=== PATIENT | male | born 1965 | race Caucasian/White ===

== ENCOUNTER 2021-08-22 16:12 | Inpatient (IN) | payer OTHER ==
[~2021-08-22] VITALS: Ht 170.2 cm; Wt 67.9 kg
[2021-08-22 18:46] LABS: COVID AG,FIA SOURCE NASAL SWAB
[2021-08-22 18:49] LABS: BASOPHILS % (AUTO) 0.5 % (0.0-2.0); EOSINOPHILS % (AUTO) 1.2 % (1.0-6.0); HEMATOCRIT 41.8 % (41-53); HEMOGLOBIN 13.7 g/dL (13.5-17.5); LYMPHOCYTES # (AUTO) 2.2 K/uL (1.0-4.8); LYMPHOCYTES % (AUTO) 22.5 % (22.0-44.0); MEAN CORPUSCULAR HEMOGLOBIN 33.5 pg (26.0-34.0); MEAN CORPUSCULAR HGB CONC 32.8 G/dL (31.0-37.0); MEAN CORPUSCULAR VOLUME 102 fL (80-100); MONOCYTES # (AUTO) 0.6 K/uL (0.1-1.0); MONOCYTES % (AUTO) 6.1 % (2.0-9.0); NEUTROPHILS # (AUTO) 6.9 K/uL (1.8-7.7); NEUTROPHILS % (AUTO) 69.7 % (40.0-70.0); PLATELET COUNT (AUTO) 289 K/uL (150-450); RED BLOOD CELL COUNT(AUTO) 4.08 MIL/uL (4.50-5.90); RED CELL DISTRIBUTION WIDTH 16.2 % (11.5-14.5)
[2021-08-22 19:11] LABS: CALCIUM, TOTAL 9.2 mg/dL (8.8-10.5); CREATININE 1.42 mg/dL (0.60-1.30); POTASSIUM 4.4 mmol/L (3.5-5.1)
[2021-08-22 19:17] LABS: ALBUMIN 3.1 g/dL (3.4-5.0); BILIRUBIN,TOTAL 2.2 mg/dL (0.1-1.0); TOTAL PROTEIN, SERUM 7.2 g/dL (6.4-8.2)
[2021-08-22] MEDS ORDERED: FUROSEMIDE 20 MG/2 ML VIAL IVP ONE (19:45)
[2021-08-22] MEDS ORDERED: ASPIRIN 81 MG CHEWABLE TABLET PO ONE (19:45)
[2021-08-22] MEDS ORDERED: LORazepam 2 MG/ML VIAL IVP ONE (19:45)
[2021-08-22] MEDS ORDERED: NITROGLYCERIN 0.4 MG SUBLINGUAL TABLET #25 SL ONE (19:45)
[2021-08-22] MEDS: OXYGEN THERAPY IH SCH (20:12)
[2021-08-22] MEDS ORDERED: LORazepam 2 MG TABLET PO PRN (20:30)
[2021-08-22 21:05] VITALS: BP 145/80
[2021-08-22 21:28] VITALS: BP 145/85
[2021-08-22] MEDS: VITAMIN B COMP/VIT C/FOLIC ACID CAPSULE PO SCH (21:41)
[2021-08-22] MEDS: ASPIRIN 81 MG CHEWABLE TABLET PO SCH (21:41)
[2021-08-22] MEDS: LABETALOL HCL 100 MG TABLET PO SCH (21:58)
[2021-08-22 22:05] VITALS: BP 140/85
[2021-08-22 23:05] VITALS: BP 135/87
[2021-08-23] VITALS (8 sets, daily range): BP systolic 122–152; BP diastolic 84–118
[2021-08-23] MEDS ORDERED: PNEUMOCOCCAL VACCINE POLYVALENT 0.5 ML VIAL [PPSV23] IM. ONE (01:15)
[2021-08-23] MEDS ORDERED: METOPROLOL TARTRATE 5 MG/5 ML VIAL IVP ONE (04:15)
[2021-08-23] MEDS: METOPROLOL TARTRATE 50 MG TABLET PO SCH ×2 (05:15→09:00)
[2021-08-23 06:58] LABS: BASOPHILS % (AUTO) 0.8 % (0.0-2.0); HEMATOCRIT 39.4 % (41-53); HEMOGLOBIN 13.4 g/dL (13.5-17.5); LYMPHOCYTES # (AUTO) 2.2 K/uL (1.0-4.8); LYMPHOCYTES % (AUTO) 23.3 % (22.0-44.0); MEAN CORPUSCULAR HEMOGLOBIN 34.5 pg (26.0-34.0); MEAN CORPUSCULAR HGB CONC 34.1 G/dL (31.0-37.0); MEAN CORPUSCULAR VOLUME 101 fL (80-100); MONOCYTES # (AUTO) 0.5 K/uL (0.1-1.0); MONOCYTES % (AUTO) 5.7 % (2.0-9.0); NEUTROPHILS # (AUTO) 6.4 K/uL (1.8-7.7); NEUTROPHILS % (AUTO) 68.2 % (40.0-70.0); PLATELET COUNT (AUTO) 286 K/uL (150-450); RED BLOOD CELL COUNT(AUTO) 3.89 MIL/uL (4.50-5.90); RED CELL DISTRIBUTION WIDTH 16.5 % (11.5-14.5)
[2021-08-23] MEDS ORDERED: LORazepam 2 MG TABLET PO PRN (07:00)
[2021-08-23 07:29] LABS: CALCIUM, TOTAL 8.6 mg/dL (8.8-10.5); CREATININE 1.38 mg/dL (0.60-1.30); MAGNESIUM 1.8 mg/dL (1.80-2.40); POTASSIUM 4.4 mmol/L (3.5-5.1)
[2021-08-23] MEDS: OXYGEN THERAPY IH SCH (08:34)
[2021-08-23] MEDS: LABETALOL HCL 100 MG TABLET PO SCH ×2 (08:36→20:31)
[2021-08-23] MEDS: FUROSEMIDE 20 MG/2 ML VIAL IVP SCH ×2 (08:36→20:30)
[2021-08-23] MEDS: VITAMIN B COMP/VIT C/FOLIC ACID CAPSULE PO SCH ×2 (08:36→20:30)
[2021-08-23] MEDS: ATORVASTATIN CALCIUM 20 MG TABLET PO SCH (08:36)
[2021-08-23] MEDS ORDERED: LORazepam 2 MG TABLET PO SCH (09:00)
[2021-08-23] MEDS: LORazepam 2 MG/ML VIAL IVP PRN ×2 (14:57→22:59)
[2021-08-23] MEDS ORDERED: MAGNESIUM SULFATE 2 GM, MVI, ADULT NO.1 WITH VIT K 10 ML, THIAMINE 100 MG, FOLIC ACID 1... IV ONE ×5 (15:00)
[2021-08-23] MEDS: ASPIRIN 81 MG CHEWABLE TABLET PO SCH (20:30)
[2021-08-24 00:15] VITALS: BP 130/95
[2021-08-24] MEDS: LORazepam 2 MG/ML VIAL IVP PRN ×5 (03:17→22:35)
[2021-08-24 04:31] VITALS: BP 142/94
[2021-08-24 07:11] VITALS: BP 146/105
[2021-08-24 08:00] LABS: CALCIUM, TOTAL 8.9 mg/dL (8.8-10.5); CREATININE 1.39 mg/dL (0.60-1.30); POTASSIUM 4.1 mmol/L (3.5-5.1)
[2021-08-24] MEDS: FUROSEMIDE 20 MG/2 ML VIAL IVP SCH ×2 (08:30→20:48)
[2021-08-24] MEDS: ATORVASTATIN CALCIUM 20 MG TABLET PO SCH (08:31)
[2021-08-24] MEDS: VITAMIN B COMP/VIT C/FOLIC ACID CAPSULE PO SCH ×2 (08:31→20:48)
[2021-08-24] MEDS: LABETALOL HCL 100 MG TABLET PO SCH ×2 (08:33→20:49)
[2021-08-24 11:11] VITALS: BP 132/95
[2021-08-24] MEDS ORDERED: FUROSEMIDE 20 MG/2 ML VIAL IVP ONE (13:00)
[2021-08-24 13:18] LABS: ABG BASE EXCESS -1.3 mmol/L (-2.0-3.0); ABG CARBOXYHEMOGLOBIN 1.6 % (0.0-1.5); ABG HCO3 23.6 mmol/L (22.0-26.0); ABG METHEMOGLOBIN 0.3 % (0.0-1.5); ABG OXYGEN CONTENT 18.9 mL/dL (15.0-23.0); ABG OXYGEN SATURATION 97.2 % (95.0-98.0); ABG OXYHEMOGLOBIN 95.4 % (94.0-100.0); ABG PCO2 38 mmHg (35-45); PO2, ARTERIAL BG 92.3 mmHg (84.0-92.0); SOURCE, BLOOD GAS ARTERIAL; TEMPERATURE, FAHRENHEIT, BG 97.2 FAHREN (96.0-98.6)
[2021-08-24 13:21] LABS: SITE, BLOOD GAS LFT RADIAL
[2021-08-24 15:07] LABS: AMPHET/METH SCREEN,URINE POSITIVE (NEGATIVE); BARBITURATE SCREEN, URINE NEGATIVE (NEGATIVE); BENZODIAZEPINES SCREEN,URINE NEGATIVE (NEGATIVE); CANNABINOID SCREEN,URINE NEGATIVE (NEGATIVE); COCAINE SCREEN,URINE NEGATIVE (NEGATIVE); METHADONE SCREEN, URINE NEGATIVE (NEGATIVE); OPIATE SCREEN,URINE NEGATIVE (NEGATIVE); PHENCYCLIDINE SCREEN,URINE NEGATIVE (NEGATIVE)
[2021-08-24 15:15] VITALS: BP 133/98
[2021-08-24] MEDS: ChlordiazePOXIDE HCL 25 MG CAPSULE PO SCH (15:33)
[2021-08-24 20:45] VITALS: BP 151/116
[2021-08-24] MEDS: ASPIRIN 81 MG CHEWABLE TABLET PO SCH (20:48)
[2021-08-25] MEDS: ChlordiazePOXIDE HCL 25 MG CAPSULE PO SCH ×3 (00:18→16:25)
[2021-08-25 00:41] VITALS: BP 140/105
[2021-08-25] MEDS: LORazepam 2 MG/ML VIAL IVP PRN ×3 (03:32→19:48)
[2021-08-25 04:39] VITALS: BP 143/102
[2021-08-25] MEDS ORDERED: LORazepam 1 MG TABLET PO PRN (07:00)
[2021-08-25 08:00] VITALS: BP 140/101
[2021-08-25] MEDS: ATORVASTATIN CALCIUM 20 MG TABLET PO SCH (08:46)
[2021-08-25] MEDS: FUROSEMIDE 20 MG/2 ML VIAL IVP SCH ×2 (08:46→20:19)
[2021-08-25] MEDS: LABETALOL HCL 100 MG TABLET PO SCH ×2 (08:46→20:20)
[2021-08-25] MEDS: VITAMIN B COMP/VIT C/FOLIC ACID CAPSULE PO SCH ×2 (08:46→22:49)
[2021-08-25] MEDS ORDERED: LORazepam 1 MG TABLET PO SCH (09:00)
[2021-08-25 11:25] VITALS: BP 129/89
[2021-08-25] MEDS: FOLIC ACID 1 MG TABLET PO SCH (12:05)
[2021-08-25] MEDS: THIAMINE 100 MG/ML 2 ML VIAL IVP SCH (12:05)
[2021-08-25] MEDS ORDERED: ASPIRIN 81 MG DR TABLET PO SCH (13:00)
[2021-08-25] MEDS: ASPIRIN 81 MG CHEWABLE TABLET PO SCH (13:14)
[2021-08-25 15:50] VITALS: BP 132/94
[2021-08-25 19:23] VITALS: BP 139/98
[2021-08-25] MEDS: ATORVASTATIN CALCIUM 40 MG TABLET PO SCH (20:20)
[2021-08-25] MEDS ORDERED: ATORVASTATIN CALCIUM 40 MG TABLET PO SCH (21:00)
[2021-08-26] VITALS (10 sets, daily range): BP systolic 128–146; BP diastolic 84–102
[2021-08-26] MEDS: LORazepam 2 MG/ML VIAL IVP PRN (01:48)
[2021-08-26] MEDS ORDERED: DiphenhydrAMINE HCL 50 MG/ML VIAL IVP ONE (02:15)
[2021-08-26] MEDS ORDERED: LORazepam 2 MG/ML VIAL IVP ONE (02:15)
[2021-08-26] MEDS ORDERED: HALOPERIDOL LACTATE 5 MG/ML VIAL IM SCH (02:15)
[2021-08-26] MEDS ORDERED: LORazepam 1 MG TABLET PO PRN (07:00)
[2021-08-26] MEDS: ChlordiazePOXIDE HCL 25 MG CAPSULE PO SCH ×4 (08:00→23:35)
[2021-08-26] MEDS: LABETALOL HCL 100 MG TABLET PO SCH ×2 (09:00→21:40)
[2021-08-26] MEDS: ASPIRIN 81 MG CHEWABLE TABLET PO SCH (09:00)
[2021-08-26] MEDS: FOLIC ACID 1 MG TABLET PO SCH (09:00)
[2021-08-26] MEDS: VITAMIN B COMP/VIT C/FOLIC ACID CAPSULE PO SCH ×2 (09:00→21:07)
[2021-08-26] MEDS: FUROSEMIDE 20 MG/2 ML VIAL IVP SCH (09:02)
[2021-08-26] MEDS: THIAMINE 100 MG/ML 2 ML VIAL IVP SCH (09:03)
[2021-08-26 10:26] LABS: GLUCOMETER DEV NAME(LOC) 5N.3; GLUCOSE,POINT OF CARE 97 MG/DL (70-110)
[2021-08-26 18:21] LABS: GLUCOMETER DEV NAME(LOC) 5N.3; GLUCOSE,POINT OF CARE 79 MG/DL (70-110)
[2021-08-26] MEDS: ATORVASTATIN CALCIUM 40 MG TABLET PO SCH (21:08)
[2021-08-26] MEDS: FUROSEMIDE 40 MG/4 ML VIAL IVP SCH (21:29)
[2021-08-27 03:53] VITALS: BP 113/87
[2021-08-27] MEDS: LORazepam 2 MG/ML VIAL IVP PRN ×3 (04:58→21:31)
[2021-08-27 07:50] VITALS: BP 124/87
[2021-08-27] MEDS: ChlordiazePOXIDE HCL 25 MG CAPSULE PO SCH ×4 (08:00→23:52)
[2021-08-27] MEDS ORDERED: GADOTERATE MEGLUMINE 10 MMOL/20 ML VIAL IVP ONE (08:12)
[2021-08-27 08:37] LABS: BASOPHILS % (AUTO) 0.3 % (0.0-2.0); HEMATOCRIT 44.7 % (41-53); LYMPHOCYTES # (AUTO) 1.2 K/uL (1.0-4.8); MEAN CORPUSCULAR HEMOGLOBIN 33.6 pg (26.0-34.0); MEAN CORPUSCULAR HGB CONC 33.5 G/dL (31.0-37.0); MEAN CORPUSCULAR VOLUME 100 fL (80-100); MONOCYTES # (AUTO) 0.8 K/uL (0.1-1.0); MONOCYTES % (AUTO) 7.2 % (2.0-9.0); NEUTROPHILS # (AUTO) 9.1 K/uL (1.8-7.7); NEUTROPHILS % (AUTO) 80.5 % (40.0-70.0); PLATELET COUNT (AUTO) 303 K/uL (150-450); RED BLOOD CELL COUNT(AUTO) 4.45 MIL/uL (4.50-5.90); RED CELL DISTRIBUTION WIDTH 15.9 % (11.5-14.5)
[2021-08-27 08:47] LABS: CALCIUM, TOTAL 8.3 mg/dL (8.8-10.5); CREATININE 1.27 mg/dL (0.60-1.30); POTASSIUM 3.8 mmol/L (3.5-5.1)
[2021-08-27] MEDS: LABETALOL HCL 100 MG TABLET PO SCH ×2 (09:00→21:00)
[2021-08-27] MEDS: FOLIC ACID 1 MG TABLET PO SCH (09:00)
[2021-08-27] MEDS: ASPIRIN 81 MG CHEWABLE TABLET PO SCH (09:00)
[2021-08-27] MEDS: VITAMIN B COMP/VIT C/FOLIC ACID CAPSULE PO SCH ×2 (09:00→20:46)
[2021-08-27] MEDS: FUROSEMIDE 40 MG/4 ML VIAL IVP SCH ×2 (10:55→20:46)
[2021-08-27] MEDS: THIAMINE 100 MG/ML 2 ML VIAL IVP SCH (10:55)
[2021-08-27 12:45] VITALS: BP 121/91
[2021-08-27 16:50] VITALS: BP 111/62
[2021-08-27 19:27] VITALS: BP 123/85
[2021-08-27 20:30] VITALS: BP 139/96
[2021-08-27] MEDS: ATORVASTATIN CALCIUM 40 MG TABLET PO SCH (20:46)
[2021-08-28] VITALS (7 sets, daily range): BP systolic 100–124; BP diastolic 62–78
[2021-08-28] MEDS: LORazepam 2 MG/ML VIAL IVP PRN (03:38)
[2021-08-28 07:21] LABS: BASOPHILS % (AUTO) 0.5 % (0.0-2.0); HEMATOCRIT 46.2 % (41-53); HEMOGLOBIN 15.5 g/dL (13.5-17.5); LYMPHOCYTES # (AUTO) 1.3 K/uL (1.0-4.8); LYMPHOCYTES % (AUTO) 10.9 % (22.0-44.0); MEAN CORPUSCULAR HEMOGLOBIN 33.8 pg (26.0-34.0); MEAN CORPUSCULAR HGB CONC 33.5 G/dL (31.0-37.0); MEAN CORPUSCULAR VOLUME 101 fL (80-100); MONOCYTES # (AUTO) 1.1 K/uL (0.1-1.0); MONOCYTES % (AUTO) 9.7 % (2.0-9.0); NEUTROPHILS # (AUTO) 9.1 K/uL (1.8-7.7); NEUTROPHILS % (AUTO) 77.9 % (40.0-70.0); PLATELET COUNT (AUTO) 316 K/uL (150-450); RED BLOOD CELL COUNT(AUTO) 4.58 MIL/uL (4.50-5.90); RED CELL DISTRIBUTION WIDTH 15.4 % (11.5-14.5)
[2021-08-28 07:39] LABS: CALCIUM, TOTAL 8.7 mg/dL (8.8-10.5); CREATININE 1.28 mg/dL (0.60-1.30); POTASSIUM 3.5 mmol/L (3.5-5.1)
[2021-08-28] MEDS: FUROSEMIDE 40 MG/4 ML VIAL IVP SCH ×2 (09:16→22:00)
[2021-08-28] MEDS: LABETALOL HCL 100 MG TABLET PO SCH (09:17)
[2021-08-28] MEDS: THIAMINE 100 MG/ML 2 ML VIAL IVP SCH (09:17)
[2021-08-28] MEDS: ChlordiazePOXIDE HCL 25 MG CAPSULE PO SCH ×2 (09:18→16:43)
[2021-08-28] MEDS: ASPIRIN 81 MG CHEWABLE TABLET PO SCH (09:18)
[2021-08-28] MEDS: FOLIC ACID 1 MG TABLET PO SCH (09:18)
[2021-08-28] MEDS: VITAMIN B COMP/VIT C/FOLIC ACID CAPSULE PO SCH ×2 (09:22→22:05)
[2021-08-28] MEDS: ATORVASTATIN CALCIUM 40 MG TABLET PO SCH (22:05)
[2021-08-29] VITALS (7 sets, daily range): BP systolic 98–124; BP diastolic 65–85
[2021-08-29] MEDS: ChlordiazePOXIDE HCL 25 MG CAPSULE PO SCH ×4 (00:23→18:06)
[2021-08-29] MEDS: LABETALOL HCL 100 MG TABLET PO SCH ×3 (00:23→20:43)
[2021-08-29 06:25] LABS: BASOPHILS % (AUTO) 0.4 % (0.0-2.0); EOSINOPHILS % (AUTO) 0.6 % (1.0-6.0); HEMATOCRIT 46.8 % (41-53); HEMOGLOBIN 15.6 g/dL (13.5-17.5); LYMPHOCYTES # (AUTO) 1.2 K/uL (1.0-4.8); LYMPHOCYTES % (AUTO) 10.9 % (22.0-44.0); MEAN CORPUSCULAR HEMOGLOBIN 33.3 pg (26.0-34.0); MEAN CORPUSCULAR HGB CONC 33.2 G/dL (31.0-37.0); MEAN CORPUSCULAR VOLUME 100 fL (80-100); MONOCYTES # (AUTO) 1.2 K/uL (0.1-1.0); MONOCYTES % (AUTO) 10.8 % (2.0-9.0); NEUTROPHILS # (AUTO) 8.9 K/uL (1.8-7.7); NEUTROPHILS % (AUTO) 77.3 % (40.0-70.0); PLATELET COUNT (AUTO) 318 K/uL (150-450); RED BLOOD CELL COUNT(AUTO) 4.68 MIL/uL (4.50-5.90); RED CELL DISTRIBUTION WIDTH 15.3 % (11.5-14.5)
[2021-08-29 06:49] LABS: CALCIUM, TOTAL 8.7 mg/dL (8.8-10.5); CREATININE 1.32 mg/dL (0.60-1.30); POTASSIUM 3.5 mmol/L (3.5-5.1)
[2021-08-29] MEDS: ASPIRIN 81 MG CHEWABLE TABLET PO SCH (09:59)
[2021-08-29] MEDS: FOLIC ACID 1 MG TABLET PO SCH (09:59)
[2021-08-29] MEDS: THIAMINE 100 MG/ML 2 ML VIAL IVP SCH (10:00)
[2021-08-29] MEDS: FUROSEMIDE 40 MG/4 ML VIAL IVP SCH ×2 (10:00→20:31)
[2021-08-29] MEDS: VITAMIN B COMP/VIT C/FOLIC ACID CAPSULE PO SCH ×2 (10:00→21:28)
[2021-08-29] MEDS: QUEtiapine FUMARATE 25 MG TABLET PO SCH ×2 (13:15→21:29)
[2021-08-29] MEDS: ATORVASTATIN CALCIUM 40 MG TABLET PO SCH (21:28)
[2021-08-30] VITALS (8 sets, daily range): BP systolic 101–120; BP diastolic 58–83
[2021-08-30] MEDS: ChlordiazePOXIDE HCL 25 MG CAPSULE PO SCH ×4 (01:35→23:00)
[2021-08-30 07:43] LABS: BASOPHILS % (AUTO) 0.6 % (0.0-2.0); EOSINOPHILS % (AUTO) 0.8 % (1.0-6.0); HEMATOCRIT 46.4 % (41-53); HEMOGLOBIN 15.6 g/dL (13.5-17.5); LYMPHOCYTES # (AUTO) 1.3 K/uL (1.0-4.8); LYMPHOCYTES % (AUTO) 12.2 % (22.0-44.0); MEAN CORPUSCULAR HEMOGLOBIN 33.4 pg (26.0-34.0); MEAN CORPUSCULAR HGB CONC 33.5 G/dL (31.0-37.0); MEAN CORPUSCULAR VOLUME 100 fL (80-100); MONOCYTES # (AUTO) 1.1 K/uL (0.1-1.0); MONOCYTES % (AUTO) 10.3 % (2.0-9.0); NEUTROPHILS # (AUTO) 8.2 K/uL (1.8-7.7); NEUTROPHILS % (AUTO) 76.1 % (40.0-70.0); PLATELET COUNT (AUTO) 296 K/uL (150-450); RED BLOOD CELL COUNT(AUTO) 4.66 MIL/uL (4.50-5.90); RED CELL DISTRIBUTION WIDTH 15.2 % (11.5-14.5)
[2021-08-30 08:17] LABS: CREATININE 1.34 mg/dL (0.60-1.30); POTASSIUM 3.7 mmol/L (3.5-5.1)
[2021-08-30] MEDS: THIAMINE 100 MG/ML 2 ML VIAL IVP SCH (09:05)
[2021-08-30] MEDS: VITAMIN B COMP/VIT C/FOLIC ACID CAPSULE PO SCH ×2 (09:06→21:24)
[2021-08-30] MEDS: ASPIRIN 81 MG CHEWABLE TABLET PO SCH (09:06)
[2021-08-30] MEDS: LABETALOL HCL 100 MG TABLET PO SCH ×2 (09:07→23:01)
[2021-08-30] MEDS: FUROSEMIDE 40 MG/4 ML VIAL IVP SCH ×2 (09:07→21:22)
[2021-08-30] MEDS: FOLIC ACID 1 MG TABLET PO SCH (09:07)
[2021-08-30] MEDS ORDERED: ALBUTEROL SULFATE HFA 90 MCG/PUFF 8 GM INHALER IH PRN (09:30)
[2021-08-30] MEDS: BUDESONIDE 0.5 MG/2 ML NEB SOLUTION NEB SCH ×2 (09:30→21:00)
[2021-08-30] MEDS: LACTULOSE 20 GM/30 ML SOLUTION UDCUP PO SCH ×2 (10:14→21:23)
[2021-08-30] MEDS: ATORVASTATIN CALCIUM 40 MG TABLET PO SCH (21:24)
[2021-08-30] MEDS: QUEtiapine FUMARATE 25 MG TABLET PO SCH (21:25)
[2021-08-31] VITALS: BP 127/69
[2021-08-31 06:15] VITALS: BP 116/64
[2021-08-31 07:36] VITALS: BP 102/53
[2021-08-31] MEDS ORDERED: FUROSEMIDE 40 MG TABLET PO SCH (09:00)
[2021-08-31] MEDS: ASPIRIN 81 MG CHEWABLE TABLET PO SCH (09:51)
[2021-08-31] MEDS: LISINOPRIL 5 MG TABLET PO SCH (09:52)
[2021-08-31] MEDS: FOLIC ACID 1 MG TABLET PO SCH (09:52)
[2021-08-31] MEDS: VITAMIN B COMP/VIT C/FOLIC ACID CAPSULE PO SCH (09:52)
[2021-08-31] MEDS: THIAMINE 100 MG/ML 2 ML VIAL IVP SCH (09:52)
[2021-08-31] MEDS: LABETALOL HCL 100 MG TABLET PO SCH ×2 (09:52→21:00)
[2021-08-31] MEDS: BUDESONIDE 0.5 MG/2 ML NEB SOLUTION NEB SCH ×2 (09:53→19:53)
[2021-08-31] MEDS: LACTULOSE 20 GM/30 ML SOLUTION UDCUP PO SCH (09:54)
[2021-08-31] MEDS: ChlordiazePOXIDE HCL 25 MG CAPSULE PO SCH ×2 (09:54→16:27)
[2021-08-31 12:14] VITALS: BP 103/66
[2021-08-31 16:38] VITALS: BP 117/70
[2021-08-31 20:03] VITALS: BP 92/65
[2021-08-31] MEDS: QUEtiapine FUMARATE 25 MG TABLET PO SCH (21:00)
[2021-09-01] VITALS (9 sets, daily range): BP systolic 91–132; BP diastolic 62–74
[2021-09-01] MEDS: ChlordiazePOXIDE HCL 25 MG CAPSULE PO SCH ×3 (00:09→17:30)
[2021-09-01] MEDS: VITAMIN B COMP/VIT C/FOLIC ACID CAPSULE PO SCH ×2 (00:09→09:08)
[2021-09-01] MEDS: LACTULOSE 20 GM/30 ML SOLUTION UDCUP PO SCH ×3 (00:09→21:54)
[2021-09-01] MEDS: ATORVASTATIN CALCIUM 40 MG TABLET PO SCH ×2 (00:09→21:54)
[2021-09-01] MEDS: LISINOPRIL 5 MG TABLET PO SCH (08:15)
[2021-09-01] MEDS: BUDESONIDE 0.5 MG/2 ML NEB SOLUTION NEB SCH ×2 (08:37→20:07)
[2021-09-01] MEDS: ASPIRIN 81 MG CHEWABLE TABLET PO SCH (09:07)
[2021-09-01] MEDS: THIAMINE 100 MG/ML 2 ML VIAL IVP SCH (09:08)
[2021-09-01] MEDS: FUROSEMIDE 20 MG TABLET PO SCH (09:08)
[2021-09-01] MEDS: CARVEDILOL 3.125 MG TABLET PO SCH ×2 (09:15→21:00)
[2021-09-01] MEDS: FOLIC ACID 1 MG TABLET PO SCH (09:19)
[2021-09-01 09:43] LABS: CALCIUM, TOTAL 9.4 mg/dL (8.8-10.5); CREATININE 1.29 mg/dL (0.60-1.30); POTASSIUM 3.4 mmol/L (3.5-5.1)
[2021-09-01] MEDS ORDERED: POTASSIUM CHL 10 MEQ/WATER 50 ML IV PRN (14:00)
[2021-09-01] MEDS: POTASSIUM CHLORIDE 20 MEQ ER TABLET PO PRN (15:01)
[2021-09-01] MEDS: LORazepam 2 MG/ML VIAL IVP PRN (20:15)
[2021-09-01] MEDS: QUEtiapine FUMARATE 25 MG TABLET PO SCH (21:00)
[2021-09-02] MEDS: VITAMIN B COMP/VIT C/FOLIC ACID CAPSULE PO SCH ×3 (00:13→19:55)
[2021-09-02] MEDS: ChlordiazePOXIDE HCL 25 MG CAPSULE PO SCH ×2 (00:14→08:15)
[2021-09-02 00:18] VITALS: BP 102/73
[2021-09-02 05:03] VITALS: BP 113/75
[2021-09-02 06:17] LABS: BASOPHILS % (AUTO) 0.6 % (0.0-2.0); EOSINOPHILS % (AUTO) 2.7 % (1.0-6.0); HEMATOCRIT 47.2 % (41-53); HEMOGLOBIN 15.8 g/dL (13.5-17.5); LYMPHOCYTES # (AUTO) 1.6 K/uL (1.0-4.8); LYMPHOCYTES % (AUTO) 18.4 % (22.0-44.0); MEAN CORPUSCULAR HEMOGLOBIN 33.2 pg (26.0-34.0); MEAN CORPUSCULAR HGB CONC 33.5 G/dL (31.0-37.0); MEAN CORPUSCULAR VOLUME 99 fL (80-100); MONOCYTES # (AUTO) 1.1 K/uL (0.1-1.0); MONOCYTES % (AUTO) 12.2 % (2.0-9.0); NEUTROPHILS # (AUTO) 5.9 K/uL (1.8-7.7); NEUTROPHILS % (AUTO) 66.1 % (40.0-70.0); PLATELET COUNT (AUTO) 316 K/uL (150-450); RED BLOOD CELL COUNT(AUTO) 4.76 MIL/uL (4.50-5.90); RED CELL DISTRIBUTION WIDTH 15.5 % (11.5-14.5)
[2021-09-02 06:33] LABS: ALANINE AMINOTRANSFERASE 51 U/L (12-78); ALBUMIN 2.5 g/dL (3.4-5.0); ALKALINE PHOSPHATASE 89 U/L (46-116); ANION GAP 5 mmol/L (8-16); ASPARTATE AMINOTRANSFERASE 59 U/L (15-37); BILIRUBIN,TOTAL 0.5 mg/dL (0.1-1.0); CARBON DIOXIDE 33 mmol/L (22-29); CHLORIDE 98 mmol/L (98-107); CREATININE 1.15 mg/dL (0.60-1.30); GLOMERULAR FILTR. RATE CALC > 60 mL/min (>60); GLUCOSE,RANDOM 118 mg/dL (70-110); POTASSIUM 3.4 mmol/L (3.5-5.1); SODIUM SERUM 136 mmol/L (136-145); TOTAL PROTEIN, SERUM 7.5 g/dL (6.4-8.2); UREA NITROGEN, BLOOD 32 mg/dL (7-18)
[2021-09-02] MEDS: LORazepam 2 MG/ML VIAL IVP PRN (06:49)
[2021-09-02] MEDS: LACTULOSE 20 GM/30 ML SOLUTION UDCUP PO SCH (08:15)
[2021-09-02] MEDS: FOLIC ACID 1 MG TABLET PO SCH (08:16)
[2021-09-02] MEDS: FUROSEMIDE 20 MG TABLET PO SCH (08:16)
[2021-09-02] MEDS: CARVEDILOL 3.125 MG TABLET PO SCH ×2 (08:16→19:55)
[2021-09-02] MEDS: LISINOPRIL 5 MG TABLET PO SCH (08:16)
[2021-09-02] MEDS: ASPIRIN 81 MG CHEWABLE TABLET PO SCH (08:20)
[2021-09-02] MEDS: BUDESONIDE 0.5 MG/2 ML NEB SOLUTION NEB SCH ×2 (08:36→20:54)
[2021-09-02 08:46] VITALS: BP 109/84
[2021-09-02] MEDS: THIAMINE 100 MG/ML 2 ML VIAL IVP SCH (09:00)
[2021-09-02 12:14] VITALS: BP 112/78
[2021-09-02] MEDS: POTASSIUM CHLORIDE 20 MEQ ER TABLET PO PRN (13:36)
[2021-09-02 16:03] VITALS: BP 106/71
[2021-09-02] MEDS: QUEtiapine FUMARATE 25 MG TABLET PO SCH (19:55)
[2021-09-02] MEDS: ATORVASTATIN CALCIUM 40 MG TABLET PO SCH (19:55)
[2021-09-02 20:15] VITALS: BP 93/61
[2021-09-03 04:40] VITALS: BP 103/67
[2021-09-03 07:35] LABS: BASOPHILS % (AUTO) 0.7 % (0.0-2.0); EOSINOPHILS % (AUTO) 3.3 % (1.0-6.0); HEMATOCRIT 50.3 % (41-53); HEMOGLOBIN 16.5 g/dL (13.5-17.5); LYMPHOCYTES % (AUTO) 22.2 % (22.0-44.0); MEAN CORPUSCULAR HEMOGLOBIN 32.7 pg (26.0-34.0); MEAN CORPUSCULAR HGB CONC 32.8 G/dL (31.0-37.0); MEAN CORPUSCULAR VOLUME 100 fL (80-100); MONOCYTES # (AUTO) 0.9 K/uL (0.1-1.0); MONOCYTES % (AUTO) 10.1 % (2.0-9.0); NEUTROPHILS # (AUTO) 5.7 K/uL (1.8-7.7); NEUTROPHILS % (AUTO) 63.7 % (40.0-70.0); PLATELET COUNT (AUTO) 343 K/uL (150-450); RED BLOOD CELL COUNT(AUTO) 5.04 MIL/uL (4.50-5.90); RED CELL DISTRIBUTION WIDTH 15.6 % (11.5-14.5)
[2021-09-03 07:53] LABS: ALANINE AMINOTRANSFERASE 60 U/L (12-78); ALBUMIN 2.7 g/dL (3.4-5.0); ALKALINE PHOSPHATASE 95 U/L (46-116); ANION GAP 9 mmol/L (8-16); ASPARTATE AMINOTRANSFERASE 65 U/L (15-37); BILIRUBIN,TOTAL 0.4 mg/dL (0.1-1.0); CALCIUM, TOTAL 9.1 mg/dL (8.8-10.5); CARBON DIOXIDE 28 mmol/L (22-29); CHLORIDE 101 mmol/L (98-107); CREATININE 1.14 mg/dL (0.60-1.30); GLOMERULAR FILTR. RATE CALC > 60 mL/min (>60); GLUCOSE,RANDOM 83 mg/dL (70-110); POTASSIUM 4.1 mmol/L (3.5-5.1); SODIUM SERUM 138 mmol/L (136-145); TOTAL PROTEIN, SERUM 7.8 g/dL (6.4-8.2); UREA NITROGEN, BLOOD 28 mg/dL (7-18)
[2021-09-03 08:10] VITALS: BP 112/72
[2021-09-03] MEDS: BUDESONIDE 0.5 MG/2 ML NEB SOLUTION NEB SCH ×2 (08:29→19:19)
[2021-09-03] MEDS: VITAMIN B COMP/VIT C/FOLIC ACID CAPSULE PO SCH ×2 (09:31→20:21)
[2021-09-03] MEDS: LISINOPRIL 5 MG TABLET PO SCH (09:31)
[2021-09-03] MEDS: THIAMINE 100 MG/ML 2 ML VIAL IVP SCH (09:32)
[2021-09-03] MEDS: ASPIRIN 81 MG CHEWABLE TABLET PO SCH (09:32)
[2021-09-03] MEDS: CARVEDILOL 3.125 MG TABLET PO SCH ×2 (09:32→20:21)
[2021-09-03] MEDS: FOLIC ACID 1 MG TABLET PO SCH (09:32)
[2021-09-03] MEDS: FUROSEMIDE 20 MG TABLET PO SCH (09:32)
[2021-09-03 12:17] VITALS: BP 108/68
[2021-09-03 19:29] VITALS: BP 111/73
[2021-09-03] MEDS: ATORVASTATIN CALCIUM 40 MG TABLET PO SCH (20:21)
[2021-09-03] MEDS: QUEtiapine FUMARATE 25 MG TABLET PO SCH (20:21)
[2021-09-03] MEDS: LORazepam 2 MG/ML VIAL IVP PRN (22:29)
[2021-09-04 01:50] VITALS: BP 113/76
[2021-09-04] MEDS: LORazepam 2 MG/ML VIAL IVP PRN (03:23)
[2021-09-04 05:43] VITALS: BP 107/67
[2021-09-04 07:56] VITALS: BP 90/63
[2021-09-04] MEDS: ASPIRIN 81 MG CHEWABLE TABLET PO SCH (08:21)
[2021-09-04] MEDS: FOLIC ACID 1 MG TABLET PO SCH (08:21)
[2021-09-04] MEDS: FUROSEMIDE 20 MG TABLET PO SCH (08:21)
[2021-09-04] MEDS: CARVEDILOL 3.125 MG TABLET PO SCH ×2 (08:21→20:00)
[2021-09-04] MEDS: LISINOPRIL 5 MG TABLET PO SCH (08:21)
[2021-09-04] MEDS: VITAMIN B COMP/VIT C/FOLIC ACID CAPSULE PO SCH ×2 (08:21→20:00)
[2021-09-04] MEDS: THIAMINE 100 MG/ML 2 ML VIAL IVP SCH (08:22)
[2021-09-04] MEDS: BUDESONIDE 0.5 MG/2 ML NEB SOLUTION NEB SCH ×2 (08:44→19:16)
[2021-09-04 12:05] VITALS: BP_SYST 113; BP_SYST 134; BP_DIAS 68; BP_DIAS 80
[2021-09-04 19:45] VITALS: BP 108/74
[2021-09-04] MEDS: QUEtiapine FUMARATE 25 MG TABLET PO SCH (20:00)
[2021-09-04] MEDS: ATORVASTATIN CALCIUM 40 MG TABLET PO SCH (20:00)
[2021-09-04 23:20] VITALS: BP 119/80
[2021-09-05 04:00] VITALS: BP 100/65
[2021-09-05] MEDS: BUDESONIDE 0.5 MG/2 ML NEB SOLUTION NEB SCH (08:15)
[2021-09-05 08:29] VITALS: BP 109/66
[2021-09-05] MEDS: VITAMIN B COMP/VIT C/FOLIC ACID CAPSULE PO SCH (09:01)
[2021-09-05] MEDS: LISINOPRIL 5 MG TABLET PO SCH (09:01)
[2021-09-05] MEDS: CARVEDILOL 3.125 MG TABLET PO SCH (09:01)
[2021-09-05] MEDS: FUROSEMIDE 20 MG TABLET PO SCH (09:01)
[2021-09-05] MEDS: ASPIRIN 81 MG CHEWABLE TABLET PO SCH (09:01)
[2021-09-05] MEDS: FOLIC ACID 1 MG TABLET PO SCH (09:01)
[2021-09-05] MEDS: THIAMINE 100 MG/ML 2 ML VIAL IVP SCH (09:06)
[2021-09-05 12:04] VITALS: BP 113/76
[2021-09-05] MEDS ORDERED: LISI-892 PO (13:04)
[2021-09-05] MEDS ORDERED: FURO20 PO (13:05)
[2021-09-05] MEDS ORDERED: CARV3 PO (13:07)
== END 2021-09-05 17:00 | disposition home or self-care (01) | DRG 194 ==
LOC: EMS 16:19 → 5N 20:00 → 5S 09-01 17:25
PROVIDERS: ADMIT Internal Medicine; ATTEND Internal Medicine
DX: I50.21 Acute systolic (congestive) heart failure (principal); N17.0 Acute kidney failure with tubular necrosis; I21.A1 Myocardial infarction type 2; G92.8 Other toxic encephalopathy; F15.10 Other stimulant abuse, uncomplicated; F41.9 Anxiety disorder, unspecified; R09.02 Hypoxemia; J43.9 Emphysema, unspecified; F29 Unspecified psychosis not due to a substance or known physiological condition; Z20.822 Contact with and (suspected) exposure to COVID-19; N18.9 Chronic kidney disease, unspecified; I42.8 Other cardiomyopathies; I36.1 Nonrheumatic tricuspid (valve) insufficiency; E87.6 Hypokalemia; F10.139 Alcohol abuse with withdrawal, unspecified; T42.4X5A Adverse effect of benzodiazepines, initial encounter; Y90.9 Presence of alcohol in blood, level not specified; Z79.899 Other long term (current) drug therapy; Z59.00 Homelessness unspecified; Z87.891 Personal history of nicotine dependence; Z91.14 Patient's other noncompliance with medication regimen
CPT/HCPCS: 36600; 70450; 71045; 71250; 76705; 80048; 80053; 80307; 82140; 82570; 82805; 82962; 83605; 83735; 83880; 84132; 84300; 84484; 85025; 87040; 92610; 93005; 93306; 94640; 99285; G0378; J1200; J1630; J1940; J2060; J3411; J3475; J3490; J7030; 36415-L1; 36415-TC

== ENCOUNTER 2021-09-15 13:58 | Emergency (ER) | payer OTHER ==
[~2021-09-15] VITALS: Ht 170.2 cm; Wt 75.6 kg
[~2021-09-15 13:58] MED LIST: CARV3 PO; FURO20 PO; LISI-892 PO
[2021-09-15] MEDS ORDERED: SODIUM CHLORIDE 0.9% 1,000 ML IV ONE (14:30)
[2021-09-15 14:41] LABS: BASOPHILS % (AUTO) 0.3 % (0.0-2.0); EOSINOPHILS % (AUTO) 1.5 % (1.0-6.0); HEMATOCRIT 37.5 % (41-53); HEMOGLOBIN 12.7 g/dL (13.5-17.5); LYMPHOCYTES # (AUTO) 1.7 K/uL (1.0-4.8); LYMPHOCYTES % (AUTO) 18.9 % (22.0-44.0); MEAN CORPUSCULAR HEMOGLOBIN 32.6 pg (26.0-34.0); MEAN CORPUSCULAR HGB CONC 33.9 G/dL (31.0-37.0); MEAN CORPUSCULAR VOLUME 96 fL (80-100); MONOCYTES # (AUTO) 0.5 K/uL (0.1-1.0); MONOCYTES % (AUTO) 6.1 % (2.0-9.0); NEUTROPHILS # (AUTO) 6.5 K/uL (1.8-7.7); NEUTROPHILS % (AUTO) 73.2 % (40.0-70.0); PLATELET COUNT (AUTO) 321 K/uL (150-450); RED BLOOD CELL COUNT(AUTO) 3.91 MIL/uL (4.50-5.90); RED CELL DISTRIBUTION WIDTH 16.2 % (11.5-14.5)
[2021-09-15 14:49] LABS: CALCIUM, TOTAL 8.3 mg/dL (8.8-10.5); CREATININE 1.34 mg/dL (0.60-1.30)
[2021-09-15 15:05] VITALS: BP 135/98
[2021-09-15 15:14] LABS: ALBUMIN 2.7 g/dL (3.4-5.0); BILIRUBIN,TOTAL 1.2 mg/dL (0.1-1.0); TOTAL PROTEIN, SERUM 6.8 g/dL (6.4-8.2)
[2021-09-15] MEDS ORDERED: CARV3 PO ×2 (16:03→16:31)
[2021-09-15] MEDS ORDERED: LISI5TAB21 PO (16:04)
[2021-09-15] MEDS ORDERED: FURO-152 PO ×2 (16:04→16:31)
[2021-09-15] MEDS ORDERED: LISI-660 PO (16:31)
[2021-09-15 19:46] LABS: POTASSIUM 3.9 mmol/L (3.5-5.1)
== END 2021-09-15 16:35 | disposition home or self-care (01) ==
LOC: EMS 13:58
DX: R10.33 Periumbilical pain (principal); I10 Essential (primary) hypertension; F15.90 Other stimulant use, unspecified, uncomplicated; F17.210 Nicotine dependence, cigarettes, uncomplicated; Z79.899 Other long term (current) drug therapy; Z76.0 Encounter for issue of repeat prescription
CPT/HCPCS: 36415; 74022; 80053; 82550; 83690; 83880; 84484; 85025; 93005; 96360; 99285; J7030

== ENCOUNTER 2021-09-20 20:00 | Inpatient (IN) | payer OTHER ==
[~2021-09-20] VITALS: Ht 170.2 cm; Wt 78.3 kg
[~2021-09-20 20:00] MED LIST changes: +FURO-152 PO; +LISI-660 PO; +LISI5TAB21 PO
[2021-09-20 20:50] LABS: BASOPHILS % (AUTO) 0.8 % (0.0-2.0); EOSINOPHILS % (AUTO) 2.6 % (1.0-6.0); HEMOGLOBIN 12.8 g/dL (13.5-17.5); LYMPHOCYTES % (AUTO) 24.5 % (22.0-44.0); MEAN CORPUSCULAR HEMOGLOBIN 32.8 pg (26.0-34.0); MEAN CORPUSCULAR HGB CONC 33.6 G/dL (31.0-37.0); MEAN CORPUSCULAR VOLUME 98 fL (80-100); MONOCYTES # (AUTO) 0.5 K/uL (0.1-1.0); MONOCYTES % (AUTO) 5.7 % (2.0-9.0); NEUTROPHILS # (AUTO) 5.4 K/uL (1.8-7.7); NEUTROPHILS % (AUTO) 66.4 % (40.0-70.0); PLATELET COUNT (AUTO) 287 K/uL (150-450); RED BLOOD CELL COUNT(AUTO) 3.89 MIL/uL (4.50-5.90); RED CELL DISTRIBUTION WIDTH 17.1 % (11.5-14.5)
[2021-09-20 21:01] LABS: CALCIUM, TOTAL 8.7 mg/dL (8.8-10.5); CREATININE 1.47 mg/dL (0.60-1.30); POTASSIUM 3.9 mmol/L (3.5-5.1)
[2021-09-20 21:08] LABS: ALBUMIN 2.7 g/dL (3.4-5.0); BILIRUBIN,TOTAL 1.2 mg/dL (0.1-1.0); TOTAL PROTEIN, SERUM 6.5 g/dL (6.4-8.2)
[2021-09-20] MEDS ORDERED: SODIUM CHLORIDE 0.9% 100 ML ONE (23:42)
[2021-09-20] MEDS ORDERED: IOHEXOL 350 MG/ML 100 ML VIAL ONE (23:43)
[2021-09-20] MEDS ORDERED: ACETAMINOPHEN 325 MG TABLET PO PRN (23:45)
[2021-09-20] MEDS ORDERED: ZOLPIDEM TARTRATE 5 MG TABLET PO PRN (23:45)
[2021-09-20] MEDS ORDERED: ONDANSETRON HCL 4 MG/2 ML VIAL IVP PRN (23:45)
[2021-09-20] MEDS ORDERED: MORPHINE SULFATE 2 MG/ML SYRINGE IVP PRN (23:45)
[2021-09-20] MEDS ORDERED: LORazepam 2 MG/ML VIAL IVP PRN (23:45)
[2021-09-21] MEDS: HEPARIN SODIUM,PORCINE 5,000 UNITS/ML VIAL SQ SCH ×4 (00:39→23:26)
[2021-09-21] MEDS: FUROSEMIDE 40 MG/4 ML VIAL IVP SCH ×3 (00:39→20:54)
[2021-09-21] MEDS ORDERED: CARVEDILOL 3.125 MG TABLET PO ONE (02:15)
[2021-09-21 02:37] LABS: COVID AG,FIA SOURCE NASAL SWAB
[2021-09-21 03:44] VITALS: BP 136/109
[2021-09-21 06:47] LABS: CALCIUM, TOTAL 8.4 mg/dL (8.8-10.5); CREATININE 1.27 mg/dL (0.60-1.30); POTASSIUM 3.1 mmol/L (3.5-5.1)
[2021-09-21] MEDS ORDERED: PNEUMOCOCCAL VACCINE POLYVALENT 0.5 ML VIAL [PPSV23] IM. ONE (07:00)
[2021-09-21 07:57] VITALS: BP 113/110
[2021-09-21] MEDS: CARVEDILOL 6.25 MG TABLET PO SCH ×2 (08:28→20:56)
[2021-09-21] MEDS: ASPIRIN 81 MG CHEWABLE TABLET PO SCH (08:28)
[2021-09-21] MEDS: FAMOTIDINE 20 MG TABLET PO SCH (08:28)
[2021-09-21] MEDS: DOCUSATE SODIUM 100 MG CAPSULE PO SCH ×2 (08:48→20:55)
[2021-09-21] MEDS ORDERED: POTASSIUM CHLORIDE 20 MEQ ER TABLET PO PRN (09:45)
[2021-09-21] MEDS ORDERED: POTASSIUM CHL 10 MEQ/WATER 50 ML IV PRN (09:45)
[2021-09-21 11:22] VITALS: BP 129/96
[2021-09-21 15:36] VITALS: BP 131/97
[2021-09-21 19:52] VITALS: BP 127/92
[2021-09-22 00:10] VITALS: BP 124/86
[2021-09-22 04:19] VITALS: BP 132/76
[2021-09-22 07:56] VITALS: BP 133/88
[2021-09-22] MEDS: HEPARIN SODIUM,PORCINE 5,000 UNITS/ML VIAL SQ SCH (08:23)
[2021-09-22] MEDS: FUROSEMIDE 40 MG/4 ML VIAL IVP SCH (08:23)
[2021-09-22] MEDS: FAMOTIDINE 20 MG TABLET PO SCH (08:23)
[2021-09-22] MEDS: DOCUSATE SODIUM 100 MG CAPSULE PO SCH (08:23)
[2021-09-22] MEDS: CARVEDILOL 6.25 MG TABLET PO SCH (08:23)
[2021-09-22] MEDS: ASPIRIN 81 MG CHEWABLE TABLET PO SCH (08:23)
[2021-09-22 11:19] VITALS: BP 121/84
== END 2021-09-22 15:05 | disposition home or self-care (01) | DRG 194 ==
LOC: EMS 20:00 → 5S 09-21 01:26 → UNDOADMIN 09-21 01:26
PROVIDERS: ADMIT Internal Medicine; ATTEND Internal Medicine
DX: I11.0 Hypertensive heart disease with heart failure (principal); J96.01 Acute respiratory failure with hypoxia; E44.0 Moderate protein-calorie malnutrition; I50.23 Acute on chronic systolic (congestive) heart failure; I42.9 Cardiomyopathy, unspecified; Z91.19 Patient's noncompliance with other medical treatment and regimen; F19.10 Other psychoactive substance abuse, uncomplicated; E87.6 Hypokalemia; Z20.822 Contact with and (suspected) exposure to COVID-19; Z68.27 Body mass index [BMI] 27.0-27.9, adult
CPT/HCPCS: 71045; 71275; 80048; 80053; 83690; 83880; 84132; 84484; 85025; 85379; 87081; 93005; 99285; J1644; J1940; J7050; Q9967; 36415-L1; 36415-TC

== ENCOUNTER 2021-10-22 18:28 | Inpatient (IN) | payer OTHER ==
[~2021-10-22] VITALS: Ht 170.2 cm; Wt 85.0 kg
[~2021-10-22 18:28] MED LIST changes: -FURO-152 PO; -FURO20 PO; +FURO40 PO; -LISI-660 PO; -LISI-892 PO
[2021-10-22 19:07] LABS: BASOPHILS % (AUTO) 0.9 % (0.0-2.0); EOSINOPHILS % (AUTO) 1.7 % (1.0-6.0); HEMATOCRIT 39.7 % (41-53); HEMOGLOBIN 13.3 g/dL (13.5-17.5); LYMPHOCYTES # (AUTO) 1.9 K/uL (1.0-4.8); LYMPHOCYTES % (AUTO) 19.2 % (22.0-44.0); MEAN CORPUSCULAR HEMOGLOBIN 32.4 pg (26.0-34.0); MEAN CORPUSCULAR HGB CONC 33.5 G/dL (31.0-37.0); MEAN CORPUSCULAR VOLUME 97 fL (80-100); MONOCYTES # (AUTO) 0.5 K/uL (0.1-1.0); MONOCYTES % (AUTO) 5.6 % (2.0-9.0); NEUTROPHILS # (AUTO) 7.1 K/uL (1.8-7.7); NEUTROPHILS % (AUTO) 72.6 % (40.0-70.0); PLATELET COUNT (AUTO) 331 K/uL (150-450); RED BLOOD CELL COUNT(AUTO) 4.11 MIL/uL (4.50-5.90); RED CELL DISTRIBUTION WIDTH 16.9 % (11.5-14.5)
[2021-10-22 19:18] LABS: CALCIUM, TOTAL 9.1 mg/dL (8.8-10.5); CREATININE 1.36 mg/dL (0.60-1.30); POTASSIUM 4.2 mmol/L (3.5-5.1)
[2021-10-22 19:29] LABS: ALBUMIN 3.1 g/dL (3.4-5.0); BILIRUBIN,TOTAL 1.2 mg/dL (0.1-1.0); MAGNESIUM 2.1 mg/dL (1.80-2.40); PHOSPHORUS 3.6 mg/dL (2.5-4.9); TOTAL PROTEIN, SERUM 7.4 g/dL (6.4-8.2)
[2021-10-22] MEDS ORDERED: FUROSEMIDE 40 MG/4 ML VIAL IVP ONE (20:15)
[2021-10-22] MEDS ORDERED: ONDANSETRON HCL 4 MG/2 ML VIAL IVP PRN (21:30)
[2021-10-22] MEDS ORDERED: OxyCODONE HCL/ACETAMINOPHEN 5-325 MG TABLET PO PRN (21:30)
[2021-10-22] MEDS ORDERED: LORazepam 2 MG/ML VIAL IVP PRN (21:30)
[2021-10-22] MEDS ORDERED: ACETAMINOPHEN 325 MG TABLET PO PRN (21:30)
[2021-10-22] MEDS: CARVEDILOL 6.25 MG TABLET PO SCH (21:48)
[2021-10-22 21:52] LABS: COVID AG,FIA SOURCE NASOPHARYNGEAL
[2021-10-22 23:22] LABS: AMPHET/METH SCREEN,URINE NEGATIVE (NEGATIVE); BARBITURATE SCREEN, URINE NEGATIVE (NEGATIVE); BENZODIAZEPINES SCREEN,URINE NEGATIVE (NEGATIVE); CANNABINOID SCREEN,URINE NEGATIVE (NEGATIVE); COCAINE SCREEN,URINE NEGATIVE (NEGATIVE); METHADONE SCREEN, URINE NEGATIVE (NEGATIVE); OPIATE SCREEN,URINE NEGATIVE (NEGATIVE)
[2021-10-22 23:23] LABS: PHENCYCLIDINE SCREEN,URINE NEGATIVE (NEGATIVE)
[2021-10-22] MEDS: HEPARIN SODIUM,PORCINE 5,000 UNITS/ML VIAL SQ SCH (23:52)
[2021-10-23] VITALS (7 sets, daily range): BP systolic 117–136; BP diastolic 83–107
[2021-10-23] MEDS ORDERED: PNEUMOCOCCAL VACCINE POLYVALENT 0.5 ML VIAL [PPSV23] IM. ONE (02:30)
[2021-10-23 06:33] LABS: ANION GAP 9 mmol/L (8-16); CALCIUM, TOTAL 8.5 mg/dL (8.8-10.5); CARBON DIOXIDE 26 mmol/L (22-29); CHLORIDE 103 mmol/L (98-107); CREATININE 1.18 mg/dL (0.60-1.30); GLOMERULAR FILTR. RATE CALC > 60 mL/min (>60); GLUCOSE,RANDOM 95 mg/dL (70-110); POTASSIUM 3.7 mmol/L (3.5-5.1); SODIUM SERUM 138 mmol/L (136-145); UREA NITROGEN, BLOOD 25 mg/dL (7-18)
[2021-10-23] MEDS ORDERED: FUROSEMIDE 40 MG/4 ML VIAL IVP SCH (09:00)
[2021-10-23] MEDS: DOCUSATE SODIUM 100 MG CAPSULE PO SCH ×2 (09:30→21:01)
[2021-10-23] MEDS: FAMOTIDINE 20 MG TABLET PO SCH (09:32)
[2021-10-23] MEDS: CARVEDILOL 6.25 MG TABLET PO SCH ×2 (09:33→21:01)
[2021-10-23] MEDS: HEPARIN SODIUM,PORCINE 5,000 UNITS/ML VIAL SQ SCH ×2 (09:35→16:53)
[2021-10-23] MEDS: FUROSEMIDE 40 MG/4 ML VIAL IVP SCH (21:01)
[2021-10-24] MEDS: HEPARIN SODIUM,PORCINE 5,000 UNITS/ML VIAL SQ SCH ×2 (00:57→08:25)
[2021-10-24 04:17] VITALS: BP 134/105
[2021-10-24 07:44] VITALS: BP 126/96
[2021-10-24] MEDS: DOCUSATE SODIUM 100 MG CAPSULE PO SCH (08:25)
[2021-10-24] MEDS: CARVEDILOL 6.25 MG TABLET PO SCH (08:25)
[2021-10-24] MEDS: FAMOTIDINE 20 MG TABLET PO SCH (08:25)
[2021-10-24] MEDS: FUROSEMIDE 40 MG/4 ML VIAL IVP SCH (08:26)
[2021-10-24 11:08] VITALS: BP 128/67
== END 2021-10-24 15:00 | disposition home or self-care (01) | DRG 194 ==
LOC: EMS 18:28 → 5S 21:22
PROVIDERS: ADMIT Internal Medicine; ATTEND Internal Medicine
DX: I11.0 Hypertensive heart disease with heart failure (principal); F15.10 Other stimulant abuse, uncomplicated; I50.23 Acute on chronic systolic (congestive) heart failure; I07.1 Rheumatic tricuspid insufficiency; Z20.822 Contact with and (suspected) exposure to COVID-19; Z91.19 Patient's noncompliance with other medical treatment and regimen
CPT/HCPCS: 71045; 80048; 80053; 82550; 83735; 83880; 84100; 84484; 85025; 87081; 93005; 99291; J1644; J1940; 36415-L1; 36415-TC

== ENCOUNTER 2021-12-13 10:15 | Inpatient (IN) | payer OTHER ==
[~2021-12-13] VITALS: Ht 170.2 cm; Wt 77.5 kg
[2021-12-13 10:54] LABS: BASOPHILS % (AUTO) 0.9 % (0.0-2.0); EOSINOPHILS % (AUTO) 1.3 % (1.0-6.0); HEMATOCRIT 43.3 % (41-53); HEMOGLOBIN 14.1 g/dL (13.5-17.5); LYMPHOCYTES # (AUTO) 1.5 K/uL (1.0-4.8); LYMPHOCYTES % (AUTO) 17.8 % (22.0-44.0); MEAN CORPUSCULAR HEMOGLOBIN 32.1 pg (26.0-34.0); MEAN CORPUSCULAR HGB CONC 32.6 G/dL (31.0-37.0); MEAN CORPUSCULAR VOLUME 98 fL (80-100); MONOCYTES # (AUTO) 0.5 K/uL (0.1-1.0); MONOCYTES % (AUTO) 5.5 % (2.0-9.0); NEUTROPHILS # (AUTO) 6.5 K/uL (1.8-7.7); NEUTROPHILS % (AUTO) 74.5 % (40.0-70.0); PLATELET COUNT (AUTO) 301 K/uL (150-450); RED CELL DISTRIBUTION WIDTH 18.1 % (11.5-14.5)
[2021-12-13 11:09] LABS: INR 1.2 (0.9-1.1); PROTHROMBIN TIME 13.1 SEC (9.4-11.6)
[2021-12-13 11:10] LABS: CREATININE 1.27 mg/dL (0.60-1.30); POTASSIUM 4.3 mmol/L (3.5-5.1)
[2021-12-13 11:36] LABS: ALBUMIN 3.4 g/dL (3.4-5.0); BILIRUBIN,TOTAL 2.6 mg/dL (0.1-1.0); TOTAL PROTEIN, SERUM 7.2 g/dL (6.4-8.2)
[2021-12-13 13:20] LABS: APPEARANCE,URINE CLEAR (CLEAR); BILIRUBIN,URINE NEGATIVE (NEGATIVE); GLUCOSE, URINE (UA) NEGATIVE (NEGATIVE); KETONES,URINE NEGATIVE (NEGATIVE); LEUKOCYTE ESTERASE ,URINE NEGATIVE (NEGATIVE); NITRATE,URINE NEGATIVE (NEGATIVE); OCCULT BLOOD,URINE NEGATIVE (NEGATIVE); PH,URINE 5.5 (5.0-8.0); PROTEIN,URINE NEGATIVE (NEGATIVE); SPECIFIC GRAVITIY, URINE 1.009 (1.003-1.030); UROBILINOGEN,URINE <=1.0 mg/dL (<=1.0)
[2021-12-13] MEDS ORDERED: FUROSEMIDE 40 MG/4 ML VIAL IVP ONE (14:15)
[2021-12-13 14:52] LABS: COVID AG,FIA SOURCE NASOPHARYNGEAL
[2021-12-13] MEDS ORDERED: ONDANSETRON HCL 4 MG/2 ML VIAL IVP PRN ×2 (15:00→15:30)
[2021-12-13] MEDS ORDERED: ACETAMINOPHEN 325 MG TABLET PO PRN ×2 (15:00→15:30)
[2021-12-13] MEDS ORDERED: MORPHINE SULFATE 2 MG/ML SYRINGE IVP PRN (15:30)
[2021-12-13] MEDS ORDERED: ZOLPIDEM TARTRATE 5 MG TABLET PO PRN (15:30)
[2021-12-13] MEDS ORDERED: HYDROCODONE/ACETAMINOPHEN 5-325 MG TABLET PO PRN (15:30)
[2021-12-13] MEDS ORDERED: BISACODYL 10 MG RECTAL RECTAL SUPPOSITORY PR PRN (15:30)
[2021-12-13] MEDS ORDERED: MAGNESIUM HYDROXIDE SUSPENSION 30 ML UDCUP PO PRN (15:30)
[2021-12-13 16:39] VITALS: BP 134/100
[2021-12-13] MEDS: HEPARIN SODIUM,PORCINE 5,000 UNITS/ML VIAL SQ SCH (16:53)
[2021-12-13 20:22] VITALS: BP 125/96
[2021-12-13] MEDS: FUROSEMIDE 40 MG/4 ML VIAL IVP SCH (20:40)
[2021-12-13] MEDS: DOCUSATE SODIUM 100 MG CAPSULE PO SCH (20:40)
[2021-12-13] MEDS ORDERED: CARVEDILOL 3.125 MG TABLET PO SCH (21:00)
[2021-12-14] MEDS: HEPARIN SODIUM,PORCINE 5,000 UNITS/ML VIAL SQ SCH ×4 (00:26→23:48)
[2021-12-14 00:49] VITALS: BP 134/107
[2021-12-14 05:02] VITALS: BP 147/109
[2021-12-14] MEDS ORDERED: MAGNESIUM SULFATE 4 GM/WATER 100 ML IV PRN (05:15)
[2021-12-14] MEDS ORDERED: POTASSIUM CHL 10 MEQ/WATER 50 ML IV PRN (05:15)
[2021-12-14] MEDS ORDERED: MAGNESIUM SULFATE 2 GM/WATER 50 ML IV PRN (05:15)
[2021-12-14] MEDS ORDERED: POTASSIUM CHLORIDE 20 MEQ ER TABLET PO PRN (05:15)
[2021-12-14 06:09] LABS: BASOPHILS % (AUTO) 1.1 % (0.0-2.0); EOSINOPHILS % (AUTO) 1.5 % (1.0-6.0); HEMOGLOBIN 13.6 g/dL (13.5-17.5); LYMPHOCYTES # (AUTO) 1.9 K/uL (1.0-4.8); LYMPHOCYTES % (AUTO) 23.8 % (22.0-44.0); MEAN CORPUSCULAR HEMOGLOBIN 32.7 pg (26.0-34.0); MEAN CORPUSCULAR HGB CONC 33.2 G/dL (31.0-37.0); MEAN CORPUSCULAR VOLUME 99 fL (80-100); MONOCYTES # (AUTO) 0.5 K/uL (0.1-1.0); MONOCYTES % (AUTO) 6.3 % (2.0-9.0); NEUTROPHILS # (AUTO) 5.3 K/uL (1.8-7.7); NEUTROPHILS % (AUTO) 67.3 % (40.0-70.0); PLATELET COUNT (AUTO) 288 K/uL (150-450); RED BLOOD CELL COUNT(AUTO) 4.16 MIL/uL (4.50-5.90)
[2021-12-14 06:18] LABS: ALBUMIN 3.3 g/dL (3.4-5.0); ANION GAP 8 mmol/L (8-16); CARBON DIOXIDE 27 mmol/L (22-29); CHLORIDE 104 mmol/L (98-107); GLUCOSE,RANDOM 92 mg/dL (70-110); SODIUM SERUM 139 mmol/L (136-145); UREA NITROGEN, BLOOD 27 mg/dL (7-18)
[2021-12-14 06:20] LABS: GLOMERULAR FILTR. RATE CALC > 60 mL/min (>60)
[2021-12-14 07:34] VITALS: BP 162/87
[2021-12-14] MEDS: DOCUSATE SODIUM 100 MG CAPSULE PO SCH ×2 (08:11→20:26)
[2021-12-14] MEDS: PANTOPRAZOLE SODIUM 40 MG DR TABLET PO SCH (08:11)
[2021-12-14] MEDS: LISINOPRIL 5 MG TABLET PO SCH (08:11)
[2021-12-14] MEDS: MAGNESIUM OXIDE 400 MG TABLET PO PRN ×3 (08:11→16:01)
[2021-12-14] MEDS: FUROSEMIDE 40 MG/4 ML VIAL IVP SCH ×2 (08:12→20:26)
[2021-12-14] MEDS ORDERED: CARVEDILOL 3.125 MG TABLET PO SCH (09:00)
[2021-12-14 16:36] VITALS: BP 128/101
[2021-12-14 20:09] VITALS: BP 121/83
[2021-12-14] MEDS: CARVEDILOL 12.5 MG TABLET PO SCH (20:26)
[2021-12-15] VITALS (7 sets, daily range): BP systolic 103–130; BP diastolic 71–96
[2021-12-15 06:03] LABS: EOSINOPHILS % (AUTO) 1.5 % (1.0-6.0); HEMATOCRIT 42.7 % (41-53); HEMOGLOBIN 14.1 g/dL (13.5-17.5); LYMPHOCYTES # (AUTO) 1.8 K/uL (1.0-4.8); LYMPHOCYTES % (AUTO) 21.5 % (22.0-44.0); MEAN CORPUSCULAR HEMOGLOBIN 32.1 pg (26.0-34.0); MEAN CORPUSCULAR HGB CONC 33.1 G/dL (31.0-37.0); MEAN CORPUSCULAR VOLUME 97 fL (80-100); MONOCYTES # (AUTO) 0.6 K/uL (0.1-1.0); MONOCYTES % (AUTO) 6.9 % (2.0-9.0); NEUTROPHILS # (AUTO) 5.8 K/uL (1.8-7.7); NEUTROPHILS % (AUTO) 69.1 % (40.0-70.0); PLATELET COUNT (AUTO) 290 K/uL (150-450); RED CELL DISTRIBUTION WIDTH 17.9 % (11.5-14.5)
[2021-12-15 06:29] LABS: CALCIUM, TOTAL 9.1 mg/dL (8.8-10.5); CREATININE 1.38 mg/dL (0.60-1.30); MAGNESIUM 1.9 mg/dL (1.80-2.40); POTASSIUM 4.3 mmol/L (3.5-5.1)
[2021-12-15] MEDS: HEPARIN SODIUM,PORCINE 5,000 UNITS/ML VIAL SQ SCH ×3 (07:56→23:56)
[2021-12-15] MEDS: DOCUSATE SODIUM 100 MG CAPSULE PO SCH ×2 (07:56→20:57)
[2021-12-15] MEDS: FUROSEMIDE 40 MG/4 ML VIAL IVP SCH ×2 (07:56→21:25)
[2021-12-15] MEDS: LISINOPRIL 5 MG TABLET PO SCH (07:56)
[2021-12-15] MEDS: PANTOPRAZOLE SODIUM 40 MG DR TABLET PO SCH (07:57)
[2021-12-15] MEDS: CARVEDILOL 12.5 MG TABLET PO SCH ×2 (07:57→20:57)
[2021-12-16 00:24] LABS: AMPHET/METH SCREEN,URINE NEGATIVE (NEGATIVE); BARBITURATE SCREEN, URINE NEGATIVE (NEGATIVE); BENZODIAZEPINES SCREEN,URINE NEGATIVE (NEGATIVE); CANNABINOID SCREEN,URINE NEGATIVE (NEGATIVE); COCAINE SCREEN,URINE NEGATIVE (NEGATIVE); METHADONE SCREEN, URINE NEGATIVE (NEGATIVE); OPIATE SCREEN,URINE NEGATIVE (NEGATIVE)
[2021-12-16 00:25] LABS: PHENCYCLIDINE SCREEN,URINE NEGATIVE (NEGATIVE)
[2021-12-16 04:30] VITALS: BP 119/91
[2021-12-16 06:36] LABS: BASOPHILS % (AUTO) 0.9 % (0.0-2.0); EOSINOPHILS % (AUTO) 2.2 % (1.0-6.0); HEMATOCRIT 40.3 % (41-53); HEMOGLOBIN 13.5 g/dL (13.5-17.5); LYMPHOCYTES % (AUTO) 29.2 % (22.0-44.0); MEAN CORPUSCULAR HEMOGLOBIN 32.4 pg (26.0-34.0); MEAN CORPUSCULAR HGB CONC 33.5 G/dL (31.0-37.0); MEAN CORPUSCULAR VOLUME 97 fL (80-100); MONOCYTES # (AUTO) 0.6 K/uL (0.1-1.0); MONOCYTES % (AUTO) 8.1 % (2.0-9.0); NEUTROPHILS # (AUTO) 4.1 K/uL (1.8-7.7); NEUTROPHILS % (AUTO) 59.6 % (40.0-70.0); PLATELET COUNT (AUTO) 281 K/uL (150-450); RED BLOOD CELL COUNT(AUTO) 4.17 MIL/uL (4.50-5.90); RED CELL DISTRIBUTION WIDTH 17.2 % (11.5-14.5)
[2021-12-16 06:54] LABS: ALANINE AMINOTRANSFERASE 25 U/L (12-78); ALKALINE PHOSPHATASE 75 U/L (46-116); ANION GAP 6 mmol/L (8-16); ASPARTATE AMINOTRANSFERASE 21 U/L (15-37); BILIRUBIN,TOTAL 1.5 mg/dL (0.1-1.0); CALCIUM, TOTAL 9.2 mg/dL (8.8-10.5); CARBON DIOXIDE 30 mmol/L (22-29); CHLORIDE 102 mmol/L (98-107); CREATININE 1.16 mg/dL (0.60-1.30); GLUCOSE,RANDOM 97 mg/dL (70-110); POTASSIUM 3.8 mmol/L (3.5-5.1); SODIUM SERUM 138 mmol/L (136-145); TOTAL PROTEIN, SERUM 6.8 g/dL (6.4-8.2); UREA NITROGEN, BLOOD 29 mg/dL (7-18)
[2021-12-16 06:59] LABS: GLOMERULAR FILTR. RATE CALC > 60 mL/min (>60)
[2021-12-16 07:24] VITALS: BP 122/92
[2021-12-16] MEDS: DOCUSATE SODIUM 100 MG CAPSULE PO SCH ×2 (07:58→20:39)
[2021-12-16] MEDS: FUROSEMIDE 40 MG/4 ML VIAL IVP SCH ×2 (07:58→20:41)
[2021-12-16] MEDS: HEPARIN SODIUM,PORCINE 5,000 UNITS/ML VIAL SQ SCH ×2 (07:58→16:40)
[2021-12-16] MEDS: LISINOPRIL 5 MG TABLET PO SCH (07:59)
[2021-12-16] MEDS: PANTOPRAZOLE SODIUM 40 MG DR TABLET PO SCH (07:59)
[2021-12-16] MEDS: CARVEDILOL 12.5 MG TABLET PO SCH ×2 (07:59→20:40)
[2021-12-16 11:29] VITALS: BP 98/75
[2021-12-16 15:37] VITALS: BP 104/78
[2021-12-16 19:50] VITALS: BP 108/87
[2021-12-17] VITALS (7 sets, daily range): BP systolic 90–126; BP diastolic 58–93
[2021-12-17] MEDS: HEPARIN SODIUM,PORCINE 5,000 UNITS/ML VIAL SQ SCH ×3 (00:11→16:31)
[2021-12-17] MEDS ORDERED: SODIUM CHLORIDE 0.9% 0 ML IV ONE (04:03)
[2021-12-17] MEDS: MAGNESIUM OXIDE 400 MG TABLET PO PRN (04:08)
[2021-12-17 05:58] LABS: BASOPHILS % (AUTO) 1.2 % (0.0-2.0); EOSINOPHILS % (AUTO) 2.1 % (1.0-6.0); HEMATOCRIT 41.1 % (41-53); HEMOGLOBIN 13.6 g/dL (13.5-17.5); LYMPHOCYTES # (AUTO) 2.1 K/uL (1.0-4.8); LYMPHOCYTES % (AUTO) 29.8 % (22.0-44.0); MEAN CORPUSCULAR HEMOGLOBIN 32.3 pg (26.0-34.0); MEAN CORPUSCULAR HGB CONC 33.2 G/dL (31.0-37.0); MEAN CORPUSCULAR VOLUME 98 fL (80-100); MONOCYTES # (AUTO) 0.7 K/uL (0.1-1.0); MONOCYTES % (AUTO) 9.8 % (2.0-9.0); NEUTROPHILS % (AUTO) 57.1 % (40.0-70.0); PLATELET COUNT (AUTO) 280 K/uL (150-450); RED BLOOD CELL COUNT(AUTO) 4.22 MIL/uL (4.50-5.90); RED CELL DISTRIBUTION WIDTH 17.6 % (11.5-14.5)
[2021-12-17 06:11] LABS: ALBUMIN 3.1 g/dL (3.4-5.0); BILIRUBIN,TOTAL 1.2 mg/dL (0.1-1.0); CALCIUM, TOTAL 9.2 mg/dL (8.8-10.5); CREATININE 1.29 mg/dL (0.60-1.30); POTASSIUM 3.8 mmol/L (3.5-5.1); TOTAL PROTEIN, SERUM 6.9 g/dL (6.4-8.2)
[2021-12-17] MEDS: FUROSEMIDE 40 MG/4 ML VIAL IVP SCH ×2 (08:16→20:55)
[2021-12-17] MEDS: DOCUSATE SODIUM 100 MG CAPSULE PO SCH ×2 (08:17→20:55)
[2021-12-17] MEDS: CARVEDILOL 12.5 MG TABLET PO SCH ×2 (08:17→20:55)
[2021-12-17] MEDS: PANTOPRAZOLE SODIUM 40 MG DR TABLET PO SCH (08:17)
[2021-12-17] MEDS: LISINOPRIL 5 MG TABLET PO SCH (08:24)
[2021-12-17 14:54] LABS: ABG A-A DIFF O2 38.2 mmHg (10-20.0); ABG BASE EXCESS 5.2 mmol/L (-2.0-3.0); ABG CARBOXYHEMOGLOBIN 1.2 % (0.0-1.5); ABG HCO3 28.4 mmol/L (22.0-26.0); ABG METHEMOGLOBIN 0.3 % (0.0-1.5); ABG OXYGEN CONTENT 18.2 mL/dL (15.0-23.0); ABG OXYGEN SATURATION 90.8 % (95.0-98.0); ABG OXYHEMOGLOBIN 89.4 % (94.0-100.0); ABG PCO2 44 mmHg (35-45); ABG PH 7.443 (7.35-7.450); ABG TOTAL HEMOGLOBIN 14.5 G/dL (12.0-18.0); O2 DEVICE,BLOOD GAS ROOM AIR (ROOM AIR); SITE, BLOOD GAS RT RADIAL; SOURCE, BLOOD GAS ARTERIAL; TEMPERATURE, FAHRENHEIT, BG 98.6 FAHREN (96.0-98.6)
[2021-12-18] MEDS: HEPARIN SODIUM,PORCINE 5,000 UNITS/ML VIAL SQ SCH ×3 (00:01→15:49)
[2021-12-18 04:37] VITALS: BP 113/85
[2021-12-18 07:47] VITALS: BP 129/93
[2021-12-18] MEDS: PANTOPRAZOLE SODIUM 40 MG DR TABLET PO SCH (09:09)
[2021-12-18] MEDS: DOCUSATE SODIUM 100 MG CAPSULE PO SCH (09:09)
[2021-12-18] MEDS: CARVEDILOL 12.5 MG TABLET PO SCH (09:10)
[2021-12-18] MEDS: FUROSEMIDE 40 MG/4 ML VIAL IVP SCH (09:10)
[2021-12-18] MEDS: LISINOPRIL 5 MG TABLET PO SCH (09:10)
[2021-12-18 11:00] VITALS: BP 149/81
[2021-12-18] MEDS ORDERED: LISI-892 PO (11:56)
[2021-12-18] MEDS ORDERED: CARV12 PO (11:56)
[2021-12-18] MEDS ORDERED: FURO40 PO (11:56)
[2021-12-18 15:43] VITALS: BP 111/92
[2021-12-18] MEDS ORDERED: FUROSEMIDE 40 MG TABLET PO SCH (21:00)
== END 2021-12-18 16:30 | disposition home or self-care (01) | DRG 194 ==
LOC: EMS 10:15 → 5S 15:01
PROVIDERS: ADMIT Internal Medicine; ATTEND Internal Medicine
DX: I11.0 Hypertensive heart disease with heart failure (principal); I47.2 Ventricular tachycardia; I42.9 Cardiomyopathy, unspecified; F15.10 Other stimulant abuse, uncomplicated; I50.23 Acute on chronic systolic (congestive) heart failure; Z20.822 Contact with and (suspected) exposure to COVID-19; Z91.14 Patient's other noncompliance with medication regimen; Z59.02 Unsheltered homelessness; Z79.899 Other long term (current) drug therapy; Z91.19 Patient's noncompliance with other medical treatment and regimen; Z71.51 Drug abuse counseling and surveillance of drug abuser
CPT/HCPCS: 71045; 80048; 80053; 80307; 81003; 82040; 82550; 82805; 83735; 83880; 84484; 85025; 85610; 85730; 93005; 93306; 99291; J1644; J1940; J3475; J7050; 36415-L1; 36415-TC

== ENCOUNTER 2021-12-28 15:03 | Inpatient (IN) | payer OTHER ==
[~2021-12-28] VITALS: Ht 170.2 cm; Wt 100.0 kg
[~2021-12-28 15:03] MED LIST changes: +CARV12 PO; -CARV3 PO; +LISI-892 PO; -LISI5TAB21 PO
[2021-12-28 15:30] LABS: BASOPHILS % (AUTO) 0.9 % (0.0-2.0); EOSINOPHILS % (AUTO) 0.7 % (1.0-6.0); HEMATOCRIT 39.5 % (41-53); HEMOGLOBIN 13.2 g/dL (13.5-17.5); LYMPHOCYTES # (AUTO) 1.8 K/uL (1.0-4.8); LYMPHOCYTES % (AUTO) 22.8 % (22.0-44.0); MEAN CORPUSCULAR HEMOGLOBIN 31.5 pg (26.0-34.0); MEAN CORPUSCULAR HGB CONC 33.4 G/dL (31.0-37.0); MEAN CORPUSCULAR VOLUME 95 fL (80-100); MONOCYTES # (AUTO) 0.6 K/uL (0.1-1.0); MONOCYTES % (AUTO) 7.1 % (2.0-9.0); NEUTROPHILS # (AUTO) 5.5 K/uL (1.8-7.7); NEUTROPHILS % (AUTO) 68.5 % (40.0-70.0); PLATELET COUNT (AUTO) 258 K/uL (150-450); RED BLOOD CELL COUNT(AUTO) 4.19 MIL/uL (4.50-5.90); RED CELL DISTRIBUTION WIDTH 16.9 % (11.5-14.5)
[2021-12-28] MEDS ORDERED: FUROSEMIDE 20 MG/2 ML VIAL IVP ONE (15:30)
[2021-12-28 15:42] LABS: CALCIUM, TOTAL 9.2 mg/dL (8.8-10.5); CREATININE 1.28 mg/dL (0.60-1.30); POTASSIUM 4.2 mmol/L (3.5-5.1)
[2021-12-28 15:44] LABS: COVID AG,FIA SOURCE NASOPHARYNGEAL
[2021-12-28 15:47] LABS: INR 1.2 (0.9-1.1)
[2021-12-28 16:10] LABS: ALBUMIN 3.3 g/dL (3.4-5.0); BILIRUBIN,TOTAL 2.1 mg/dL (0.1-1.0)
[2021-12-28] MEDS ORDERED: SODIUM CHLORIDE 0.9% 100 ML ONE (16:13)
[2021-12-28] MEDS ORDERED: IOHEXOL 350 MG/ML 100 ML VIAL ONE (16:13)
[2021-12-28] MEDS ORDERED: ONDANSETRON HCL 4 MG/2 ML VIAL IVP PRN ×2 (17:30→21:30)
[2021-12-28] MEDS ORDERED: ACETAMINOPHEN 325 MG TABLET PO PRN ×2 (17:30→21:30)
[2021-12-28] MEDS ORDERED: 0.9% SODIUM CHLORIDE 10 ML SYRINGE IVP PRN (17:30)
[2021-12-28 20:22] VITALS: BP_SYST 113; BP_SYST 141; BP_DIAS 107; BP_DIAS 84
[2021-12-28] MEDS ORDERED: ZOLPIDEM TARTRATE 5 MG TABLET PO PRN (21:30)
[2021-12-28] MEDS ORDERED: MAGNESIUM HYDROXIDE SUSPENSION 30 ML UDCUP PO PRN (21:30)
[2021-12-28] MEDS ORDERED: MORPHINE SULFATE 2 MG/ML SYRINGE IVP PRN (21:30)
[2021-12-28] MEDS ORDERED: HYDROCODONE/ACETAMINOPHEN 5-325 MG TABLET PO PRN (21:30)
[2021-12-28] MEDS ORDERED: BISACODYL 10 MG RECTAL RECTAL SUPPOSITORY PR PRN (21:30)
[2021-12-28] MEDS: HEPARIN SODIUM,PORCINE 5,000 UNITS/ML VIAL SQ SCH (23:23)
[2021-12-29 04:50] VITALS: BP 143/111
[2021-12-29 08:00] VITALS: BP 139/112
[2021-12-29 08:30] LABS: EOSINOPHILS % (AUTO) 0.8 % (1.0-6.0); HEMATOCRIT 41.6 % (41-53); LYMPHOCYTES % (AUTO) 23.6 % (22.0-44.0); MEAN CORPUSCULAR HEMOGLOBIN 32.1 pg (26.0-34.0); MEAN CORPUSCULAR HGB CONC 33.7 G/dL (31.0-37.0); MEAN CORPUSCULAR VOLUME 95 fL (80-100); MONOCYTES # (AUTO) 0.6 K/uL (0.1-1.0); MONOCYTES % (AUTO) 6.9 % (2.0-9.0); NEUTROPHILS # (AUTO) 5.6 K/uL (1.8-7.7); NEUTROPHILS % (AUTO) 67.7 % (40.0-70.0); PLATELET COUNT (AUTO) 261 K/uL (150-450); RED BLOOD CELL COUNT(AUTO) 4.37 MIL/uL (4.50-5.90); RED CELL DISTRIBUTION WIDTH 17.2 % (11.5-14.5)
[2021-12-29] MEDS: HEPARIN SODIUM,PORCINE 5,000 UNITS/ML VIAL SQ SCH ×3 (08:34→23:15)
[2021-12-29] MEDS: DOCUSATE SODIUM 100 MG CAPSULE PO SCH ×2 (08:34→21:00)
[2021-12-29] MEDS: FUROSEMIDE 40 MG/4 ML VIAL IVP SCH ×2 (08:34→21:21)
[2021-12-29] MEDS: PANTOPRAZOLE SODIUM 40 MG DR TABLET PO SCH (08:34)
[2021-12-29] MEDS: LISINOPRIL 5 MG TABLET PO SCH (08:34)
[2021-12-29] MEDS: CARVEDILOL 12.5 MG TABLET PO SCH ×2 (08:34→21:00)
[2021-12-29 08:45] LABS: ALANINE AMINOTRANSFERASE 37 U/L (12-78); ALBUMIN 3.3 g/dL (3.4-5.0); ALKALINE PHOSPHATASE 77 U/L (46-116); ANION GAP 12 mmol/L (8-16); ASPARTATE AMINOTRANSFERASE 25 U/L (15-37); BILIRUBIN,TOTAL 2.9 mg/dL (0.1-1.0); CALCIUM, TOTAL 9.4 mg/dL (8.8-10.5); CARBON DIOXIDE 21 mmol/L (22-29); CHLORIDE 103 mmol/L (98-107); CREATININE 1.19 mg/dL (0.60-1.30); GLOMERULAR FILTR. RATE CALC > 60 mL/min (>60); GLUCOSE,RANDOM 84 mg/dL (70-110); POTASSIUM 4.4 mmol/L (3.5-5.1); SODIUM SERUM 136 mmol/L (136-145); TOTAL PROTEIN, SERUM 7.2 g/dL (6.4-8.2); UREA NITROGEN, BLOOD 25 mg/dL (7-18)
[2021-12-29 12:33] VITALS: BP 113/68
[2021-12-29 16:39] VITALS: BP 114/84
[2021-12-29 20:34] VITALS: BP 111/87
[2021-12-30 00:44] VITALS: BP 117/81
[2021-12-30 06:48] VITALS: BP 131/94
[2021-12-30] MEDS: DOCUSATE SODIUM 100 MG CAPSULE PO SCH (07:13)
[2021-12-30 09:08] VITALS: BP 123/68
[2021-12-30] MEDS: FUROSEMIDE 40 MG/4 ML VIAL IVP SCH (09:17)
[2021-12-30] MEDS: LISINOPRIL 5 MG TABLET PO SCH (09:17)
[2021-12-30] MEDS: CARVEDILOL 12.5 MG TABLET PO SCH (09:17)
[2021-12-30] MEDS: PANTOPRAZOLE SODIUM 40 MG DR TABLET PO SCH (09:17)
[2021-12-30] MEDS: HEPARIN SODIUM,PORCINE 5,000 UNITS/ML VIAL SQ SCH (09:17)
[2021-12-30] MEDS ORDERED: LISI-892 PO (11:13)
[2021-12-30] MEDS ORDERED: FURO40 PO (11:13)
[2021-12-30] MEDS ORDERED: CARV12 PO (11:13)
[2021-12-30 11:36] VITALS: BP 108/80
== END 2021-12-30 13:20 | disposition home or self-care (01) | DRG 194 ==
LOC: EMS 15:03 → 5S 18:36
PROVIDERS: ADMIT Internal Medicine; ATTEND Internal Medicine
DX: I11.0 Hypertensive heart disease with heart failure (principal); J96.01 Acute respiratory failure with hypoxia; I50.23 Acute on chronic systolic (congestive) heart failure; R65.10 Systemic inflammatory response syndrome (SIRS) of non-infectious origin without acute organ dysfunction; D64.9 Anemia, unspecified; Z20.822 Contact with and (suspected) exposure to COVID-19; F15.10 Other stimulant abuse, uncomplicated; E66.01 Morbid (severe) obesity due to excess calories; Z79.899 Other long term (current) drug therapy; Z91.14 Patient's other noncompliance with medication regimen; Z68.34 Body mass index [BMI] 34.0-34.9, adult
CPT/HCPCS: 71045; 71275; 80053; 82550; 83880; 84484; 85025; 85610; 85730; 87081; 93005; 93971; 99291; G0378; J1644; J1940; J7050; Q9967; 36415-L1; 36415-TC

== ENCOUNTER 2022-01-05 17:23 | Inpatient (IN) | payer OTHER ==
[~2022-01-05] VITALS: Ht 167.6 cm; Wt 78.0 kg
[2022-01-05 17:53] LABS: BASOPHILS % (AUTO) 0.8 % (0.0-2.0); EOSINOPHILS % (AUTO) 1.6 % (1.0-6.0); HEMATOCRIT 39.4 % (41-53); LYMPHOCYTES # (AUTO) 1.5 K/uL (1.0-4.8); LYMPHOCYTES % (AUTO) 20.8 % (22.0-44.0); MEAN CORPUSCULAR HEMOGLOBIN 31.6 pg (26.0-34.0); MEAN CORPUSCULAR VOLUME 96 fL (80-100); MONOCYTES # (AUTO) 0.6 K/uL (0.1-1.0); MONOCYTES % (AUTO) 8.4 % (2.0-9.0); NEUTROPHILS # (AUTO) 4.9 K/uL (1.8-7.7); NEUTROPHILS % (AUTO) 68.4 % (40.0-70.0); PLATELET COUNT (AUTO) 305 K/uL (150-450); RED BLOOD CELL COUNT(AUTO) 4.13 MIL/uL (4.50-5.90); RED CELL DISTRIBUTION WIDTH 18.1 % (11.5-14.5)
[2022-01-05 17:57] LABS: COVID AG,FIA SOURCE NASOPHARYNGEAL
[2022-01-05 18:05] LABS: CALCIUM, TOTAL 8.9 mg/dL (8.8-10.5); CREATININE 1.38 mg/dL (0.60-1.30); INR 1.3 (0.9-1.1); POTASSIUM 4.4 mmol/L (3.5-5.1); PROTHROMBIN TIME 13.6 SEC (9.4-11.6)
[2022-01-05 18:26] LABS: BILIRUBIN,TOTAL 1.6 mg/dL (0.1-1.0); MAGNESIUM 1.6 mg/dL (1.80-2.40); PHOSPHORUS 4.3 mg/dL (2.5-4.9); TOTAL PROTEIN, SERUM 6.5 g/dL (6.4-8.2)
[2022-01-05] MEDS ORDERED: FUROSEMIDE 40 MG/4 ML VIAL IVP ONE (19:15)
[2022-01-05] MEDS ORDERED: ACETAMINOPHEN 325 MG TABLET PO PRN (20:30)
[2022-01-05] MEDS ORDERED: MAGNESIUM SULFATE 2 GM/WATER 50 ML IV PRN (20:30)
[2022-01-05] MEDS ORDERED: ONDANSETRON HCL 4 MG/2 ML VIAL IVP PRN (20:30)
[2022-01-05] MEDS ORDERED: MAGNESIUM SULFATE 4 GM/WATER 100 ML IV PRN (20:30)
[2022-01-05] MEDS ORDERED: MAGNESIUM OXIDE 400 MG TABLET PO PRN (20:30)
[2022-01-05] MEDS ORDERED: CARVEDILOL 6.25 MG TABLET PO SCH (21:00)
[2022-01-05 22:57] VITALS: BP 144/119
[2022-01-05] MEDS ORDERED: SODIUM CHLORIDE 0.9% 250 ML IV ONE (23:32)
[2022-01-05] MEDS: HEPARIN SODIUM,PORCINE 5,000 UNITS/ML VIAL SQ SCH (23:35)
[2022-01-05] MEDS: SPIRONOLACTONE 25 MG TABLET PO SCH (23:35)
[2022-01-06 04:25] VITALS: BP 116/78
[2022-01-06 06:43] LABS: CALCIUM, TOTAL 9.6 mg/dL (8.8-10.5); CREATININE 1.3 mg/dL (0.60-1.30); MAGNESIUM 2.4 mg/dL (1.80-2.40); POTASSIUM 4.5 mmol/L (3.5-5.1)
[2022-01-06 07:52] VITALS: BP 128/97
[2022-01-06] MEDS ORDERED: CARVEDILOL 12.5 MG TABLET PO SCH (09:00)
[2022-01-06] MEDS ORDERED: FUROSEMIDE 40 MG/4 ML VIAL IVP SCH (09:00)
[2022-01-06] MEDS ORDERED: LISINOPRIL 5 MG TABLET PO SCH (09:00)
[2022-01-06] MEDS: HEPARIN SODIUM,PORCINE 5,000 UNITS/ML VIAL SQ SCH (09:56)
[2022-01-06] MEDS: SPIRONOLACTONE 25 MG TABLET PO SCH (09:58)
[2022-01-06 11:28] VITALS: BP 121/93
[2022-01-06 15:19] VITALS: BP 115/79
== END 2022-01-06 18:45 | disposition home or self-care (01) | DRG 194 ==
LOC: EMS 17:25 → 5S 22:32
PROVIDERS: ADMIT Internal Medicine; ATTEND Internal Medicine
DX: I13.0 Hypertensive heart and chronic kidney disease with heart failure and stage 1 through stage 4 chronic kidney disease, or unspecified chronic kidney disease (principal); E83.42 Hypomagnesemia; F15.10 Other stimulant abuse, uncomplicated; I50.23 Acute on chronic systolic (congestive) heart failure; I35.1 Nonrheumatic aortic (valve) insufficiency; Z20.822 Contact with and (suspected) exposure to COVID-19; N18.30 Chronic kidney disease, stage 3 unspecified; Z91.14 Patient's other noncompliance with medication regimen; Z79.899 Other long term (current) drug therapy
CPT/HCPCS: 71045; 80048; 80053; 82040; 82550; 83735; 83880; 84100; 84484; 85025; 85610; 85730; 87081; 93005; 99285; J1644; J1940; J3475; J7050; 36415-L1; 36415-TC